=== PATIENT | female | born 1960 | race Caucasian/White ===

== ENCOUNTER 2020-11-02 10:31 | Observation (INO) ==
[2020-11-02] MEDS ORDERED: 0.9 % Sodium Chloride 1,000 ML IVC ONE ×2 (10:40→11:43)
[2020-11-02 11:03] LABS: Basophils # 0.1 K/mcL (0.0-0.2); Basophils % 0.4 %; Eosinophils # 0.1 K/mcL (0.0-0.6); Eosinophils % 0.3 %; Hematocrit 38.9 % (35.3-44.9); Hemoglobin 11.9 g/dL (11.5-15.4); Immature Granulocytes % 1.2 % (0-4); Lymphocytes # 1.7 K/mcL (0.6-4.6); Lymphocytes % 7.2 %; Mean Corpuscular HGB Conc 30.6 g/dL (31.6-35.5); Mean Corpuscular Hemoglobin 25.5 pg (28.0-33.3); Mean Corpuscular Volume 83.3 fL (83.0-100.0); Mean Platelet Volume 10.6 fL (9.4-12.4); Monocytes # 0.6 K/mcL (0.0-1.3); Monocytes % 2.7 %; Neutrophils # 20.9 K/mcL (1.6-8.9); Platelet Count 403 K/mcL (140-400); Red Blood Count 4.67 M/mcL (3.82-4.97); Red Cell Distribution Width 16.9 % (11.5-14.5); Segmented Neutrophils % 88.2 %; White Blood Count 23.7 K/mcL (4.3-11.1)
[2020-11-02 11:09] LABS: Bilirubin,Urine Negative (Negative); Blood,Urine Small (Negative); Clarity,Urine Slightly Cloudy (Clear); Color,Urine Yellow (Yellow); Glucose,Urine (UA) 250 mg/dL (Normal); Ketones,Urine Negative (Negative); Leukocyte Esterase,Urine Trace (Negative); Nitrite,Urine Positive (Negative); Protein,Urine 30 mg/dL (Neg-Trace); Urobilinogen,Urine Normal (Normal)
[2020-11-02 11:12] LABS: Prothrombin Time 11.7 Seconds (9.4-12.1)
[2020-11-02 11:15] LABS: Activated Partial Thrombo Time 26.9 Seconds (26.0-36.0)
[2020-11-02 11:21] LABS: Troponin I < 0.03 ng/mL (< 0.04)
[2020-11-02 11:23] LABS: Acetaminophen < 10 mcg/mL (10-20); Alanine Aminotransferase 23 Units/L (7-52); Albumin 3.8 g/dL (3.5-5.7); Albumin/Globulin Ratio 1.2 (1.1-2.2); Alkaline Phosphatase 65 Units/L (34-104); Aspartate Amino Transferase 43 Units/L (13-39); BUN/Creatinine Ratio 11 (6-26); Bilirubin,Direct 0.1 mg/dL (0.0-0.2); Bilirubin,Indirect 0.2 mg/dL (0.0-1.0); Bilirubin,Total 0.3 mg/dL (0.3-1.0); Blood Urea Nitrogen 15 mg/dL (6-20); Calcium 8.7 mg/dL (8.6-10.3); Carbon Dioxide 23 mEq/L (23-29); Chloride 101 mEq/L (98-107); Ethanol < 10 mg/dL (Less than 10); Globulin 3.3 g/dL (2.4-3.5); Glucose 292 mg/dL (70-105); Osmolality,Calculated 296 (280-300); Potassium 4.6 mEq/L (3.5-5.1); Salicylate < 2.5 mg/dL (15.0-30.0); Sodium 137 mEq/L (136-145); Total Protein 7.1 g/dL (6.4-8.9); eGFR For African Americans 49 (> 60); eGFR For Non-African Americans 41 (> 60)
[2020-11-02] MEDS ORDERED: cefTRIAXone 2,000 MG in 0.9 % Sodium Chloride Mini Bag 100 ML IVPB ONE (11:25)
[2020-11-02 11:27] LABS: Bacteria,Urine Many per hpf (None-Few)
[2020-11-02 11:36] LABS: Amphetamine Screen,Urine Negative ng/mL (Cutoff=1000); Barbiturate Screen,Urine Negative ng/mL (Cutoff=200); Benzodiazepines Screen,Urine Negative ng/mL (Cutoff=200); Cannabinoid Screen,Urine Negative ng/mL (Cutoff = 50); Cocaine Screen,Urine Negative ng/mL (Cutoff= 300); Opiate Screen,Urine Negative ng/mL (Cutoff=300); Phencyclidine Screen,Urine Negative ng/mL (Cutoff=25)
[2020-11-02] MEDS ORDERED: Melatonin 3 MG TABLET PO PRN (14:02)
[2020-11-02] MEDS ORDERED: Naloxone 0.4 MG/ML INJ IVP PRN (14:02)
[2020-11-02] MEDS ORDERED: Ondansetron 4 MG/2 ML VIAL IVP PRN (14:02)
[2020-11-02] MEDS ORDERED: Ipratropium/Albuterol Neb 3 ML IH PRN (14:09)
[2020-11-02] MEDS ORDERED: Azithromycin 500 MG in 0.9 % Sodium Chloride 250 ML IVPB SCH (15:00)
[2020-11-02] MEDS: Nicotine 21 MG PATCH.TD24 TD SCH (15:15)
[2020-11-02] MEDS: 0.9 % Sodium Chloride 1,000 ML IVC SCH ×2 (15:26→22:19)
[2020-11-02] MEDS: Gabapentin 400 MG CAPSULE PO SCH ×2 (15:28→21:05)
[2020-11-02] MEDS ORDERED: lisinopriL 20 MG TABLET PO SCH (21:00)
[2020-11-02] MEDS ORDERED: clonazePAM 0.5 MG TABLET PO SCH (21:00)
[2020-11-02] MEDS: Acetaminophen 325 MG TABLET PO PRN (21:05)
[2020-11-02] MEDS: Aspirin Enteric Coated 81 MG Tablet PO SCH (22:29)
[2020-11-02] MEDS ORDERED: *HR* OxyCODONE/APAP 5/325 TABLET PO PRN (22:44)
[2020-11-03] MEDS ORDERED: 0.9 % Sodium Chloride 500 ML IV ONE ×2 (02:11→02:52)
[2020-11-03 02:43] LABS: Hematocrit 25.4 % (35.3-44.9); Hemoglobin 8.2 g/dL (11.5-15.4); Mean Corpuscular HGB Conc 32.3 g/dL (31.6-35.5); Mean Corpuscular Hemoglobin 26.5 pg (28.0-33.3); Mean Corpuscular Volume 81.9 fL (83.0-100.0); Mean Platelet Volume 10.8 fL (9.4-12.4); Platelet Count 224 K/mcL (140-400); White Blood Count 9.1 K/mcL (4.3-11.1)
[2020-11-03 02:54] LABS: BUN/Creatinine Ratio 12 (6-26); Blood Urea Nitrogen 12 mg/dL (6-20); Calcium 7.5 mg/dL (8.6-10.3); Carbon Dioxide 23 mEq/L (23-29); Chloride 109 mEq/L (98-107); Chol/HDL Ratio 3.1 (0-4.9); Cholesterol 72 mg/dL (< 200); Glucose 122 mg/dL (70-105); HDL Cholesterol 23 mg/dL (40-59); LDL Cholesterol,Calculated 36 mg/dL (< 100); Magnesium 1.5 mg/dL (1.6-2.6); Osmolality,Calculated 285 (280-300); Potassium 3.9 mEq/L (3.5-5.1); Sodium 137 mEq/L (136-145); Triglycerides 66 mg/dL (< 150); eGFR For African Americans > 60 (> 60); eGFR For Non-African Americans 55 (> 60)
[2020-11-03] MEDS: Acetaminophen 325 MG TABLET PO PRN (03:12)
[2020-11-03] MEDS ORDERED: Albumin 25% 25gram/100mL 25 GM/100 ML IV.SOLN IVPB ONE (04:21)
[2020-11-03] MEDS ORDERED: Cholecalciferol (D-3) 1,000 UNIT (25MCG) TABLET PO SCH (09:00)
[2020-11-03] MEDS: Nicotine 21 MG PATCH.TD24 TD SCH (09:02)
[2020-11-03] MEDS: Gabapentin 400 MG CAPSULE PO SCH (09:16)
[2020-11-03] MEDS: Aspirin Enteric Coated 81 MG Tablet PO SCH (09:16)
[2020-11-03] MEDS ORDERED: cefTRIAXone 2,000 MG in 0.9 % Sodium Chloride Mini Bag 100 ML IVPB SCH (11:00)
[2020-11-03 12:24] VITALS: BP 122/56
== END 2020-11-03 15:00 | disposition short-term general hospital (02) ==
LOC: EMEROOPIK 10:31 → INPPIK 10:31
PROVIDERS: ADMIT Family Medicine; ATTEND Family Medicine